=== PATIENT | female | born 1970 ===

== ENCOUNTER 2016-11-06 07:19 | Emergency (ER) | payer MEDICAID ==
[2016-11-06 07:27] VITALS: BMI 27.1
--- NOTE | 2016-11-06 07:58 | C.PDOC ---
History Of Present Illness 46 y/o female presents to the ED with history of migraine headaches x4 days. Pt has experienced similar headaches in the past. Pt states throbbing pain to top of head, radiating forward with associated photophobia, nausea and vomiting. Denies fever, numbness, weakness, visual changes or any other complaints. Time Seen by Provider: 11/06/16 07:43 Chief Complaint (Nursing): Headache History Per: Patient History/Exam Limitations: no limitations Onset/Duration Of Symptoms: Days Current Symptoms Are (Timing): Still Present Severity: Moderate Quality: Other (throbbing) Associated Symptoms: Photophobia, Nausea, Vomiting. denies: Blurred Vision, Extremity Weakness Recent travel outside of the [place]: No Past Medical History Reviewed: Historical Data, Nursing Documentation, Vital Signs Vital Signs: Last Vital Signs Temp 98.1 F 11/06/16 09:50 Pulse 74 11/06/16 09:50 Resp 17 11/06/16 09:50 BP 148/90 11/06/16 09:50 Pulse Ox 99 11/06/16 09:50 - Medical History PMH: Migraine Family History: States: Unknown Family Hx - Social History Hx Tobacco Use: No Hx Alcohol Use: No Hx Substance Use: No - Immunization History Hx Tetanus Toxoid Vaccination: No Hx Influenza Vaccination: No Hx Pneumococcal Vaccination: No Review Of Systems Except As Marked, All Systems Reviewed And Found Negative. Constitutional: Negative for: Fever Eyes: Positive for: Other (photophobia). Negative for: Vision Change Gastrointestinal: Positive for: Nausea, Vomiting Neurological: Positive for: Headache. Negative for: Weakness, Numbness Physical Exam - Physical Exam Appears: Non-toxic, In Acute Distress (uncomfortable) Skin: Warm, Dry, No Rash Head: Atraumatic, Normacephalic Eye(s): bilateral: PERRL, EOMI Ear(s): Bilateral: Normal Oral Mucosa: Moist Throat: No Erythema, No Exudate Neck: Normal ROM, No Midline Cervical Tenderness, No Paracervical Tenderness, Supple Chest: Symmetrical, No Ecchymosis, No Subcutaneous Emphysema Cardiovascular: Rhythm Regular, No Murmur Respiratory: Normal Breath Sounds, No Rales, No Rhonchi, No Wheezing Gastrointestinal/Abdominal: No Tenderness Back: No CVA Tenderness, No Vertebral Tenderness, No Paraspinal Tenderness Extremity: Normal ROM, No Calf Tenderness, No Swelling Extremity: Bilateral: Atraumatic Neurological/Psych: Oriented x3, Normal Speech, Normal Cognition, Normal Cranial Nerves, Normal Motor, Normal Sensation ED Course And Treatment - Laboratory Results Result Diagrams: 11/06/16 08:36 11/06/16 08:36 Urine POC: Negative O2 Sat by Pulse Oximetry: 97 (room air) Pulse Ox Interpretation: Normal Medical Decision Making Medical Decision Making: Old records reviewed, the patient was last seen in the ED on 07/20/16 for headache and similar symptoms, had a normal CT scan and was discharged home with pain medications. Plan: labs, IV fluids, benadyl, reglan, Toradol. No need for CT as there are no neuro deficits. On re-exam, the patient reports improvement of symptoms. Lungs are CTA, heart is RRR, abdomen is soft, non-tender and patient is tolerating PO well. Patient is ambulatory in the ED with steady gait. Follow up with the medical doctor within 1-2 days, Return if worsened. Disposition - Disposition Referrals: Zhang Vernon MD [Staff Provider] - Disposition: HOME/ ROUTINE Disposition Time: 09:50 Condition: FAIR Additional Instructions: Usted necesita hacer un seguimiento con un neurlogo dentro de boubacar semana. Vuelve si empeora. you need to follow up with a neurologist within 1 week. Return if worsened. Prescriptions: Acetaminophen/Butalbital/Caf [Fioricet] 1 tab PO TID PRN #20 tab PRN Reason: Headache Naproxen [Naprosyn] 500 mg PO BID #20 tab Instructions: Migraine Headache (ED) Forms: Work Excuse Print Language: KAZAKH - Clinical Impression Clinical Impression: Migraine - PA / QUALITY CONTROL SPECIALIST / Resident Statement MD/DO has reviewed & agrees with the documentation as recorded. - Scribe Statement The provider has reviewed the documentation as recorded by the Yi Livingston All medical record entries made by the Yi were at my direction and personally dictated by me. I have reviewed the chart and agree that the record accurately reflects my personal performance of the history, physical exam, medical decision making, and the department course for this patient. I have also personally directed, reviewed, and agree with the discharge instructions and disposition.
[2016-11-06] MEDS ORDERED: DiphenhydrAMINE 50 mg/ml Inj IVP STA (08:09)
[2016-11-06] MEDS ORDERED: Sodium Chloride 0.9% 1,000 ML IV ONE (08:36)
[2016-11-06] MEDS ORDERED: Sodium Chloride 0.9% 1,000 ML ONE (08:38)
[2016-11-06] MEDS ORDERED: DiphenhydrAMINE 50 mg/ml Inj ONE (08:38)
[2016-11-06 08:46] LABS: BASO % 0.3 % (0.0-2.0); EOS # 0.1 K/uL (0.0-0.7); EOS % 0.9 % (0.0-4.0); HEMATOCRIT 41.6 % (34.0-47.0); LYMPH # 1.8 K/uL (1.0-4.3); LYMPH % 29.9 % (20.0-40.0); MEAN CELL VOLUME 93.2 fL (81.0-99.0); MEAN CORPUSCULAR HEMOGLOBIN 31.3 pg (27.0-31.0); MEAN CORPUSCULAR HGB CONC 33.6 g/dL (33.0-37.0); MONO # 0.5 K/uL (0.0-0.8); MONO % 8.1 % (0.0-10.0); RED CELL DISTRIBUTION WIDTH 13.5 % (11.5-14.5)
[2016-11-06 08:49] LABS: CHLORIDE 103 mmol/L (98-107)
[2016-11-06 08:50] LABS: POTASSIUM 4.5 mmol/L (3.6-5.2); SODIUM 135 mmol/L (132-148)
[2016-11-06 08:52] LABS: ALB/GLOB RATIO 1.3 (1.0-2.1); ALKALINE PHOSPHATASE 54 U/L (38-126); AST/SGOT 18 U/L (14-36); BILIRUBIN,TOTAL 0.6 mg/dL (0.2-1.3); BLOOD UREA NITROGEN 11 mg/dL (7-17); CARBON DIOXIDE 26 mmol/L (22-30); GFR AFRICAN-AMERICAN > 60; TOTAL PROTEIN 6.9 g/dL (6.3-8.3)
[2016-11-06 08:53] LABS: ALT/SGPT 14 U/L (9-52); CALCIUM 8.2 mg/dl (8.6-10.4); GLUCOSE,RANDOM 120 mg/dL (65-105)
[2016-11-06 09:51] VITALS: BP 148/90; PULSE 74; RESP 17; TEMP 98.1
[2016-11-06 18:08] VITALS: O2SAT 97
== END 2016-11-06 09:58 | disposition home or self-care (01) ==
LOC: C.ER 07:19
DX: G43.909 Migraine, unspecified, not intractable, without status migrainosus (principal)
CPT/HCPCS: 80053; 85025; 94770; 96374; 96375; 99284; J1200; J1885; J2765; J7040

== ENCOUNTER 2017-02-10 11:22 | Observation (INO) | payer MEDICAID | END 2017-02-10 15:40 | disposition home or self-care (01) | LOC: C.ER 11:22 → C.9OBSV 11:45 | PROVIDERS: ADMIT Emergency Medicine | CPT/HCPCS: 74177; 80053; 81001; 83690; 84703; 85025; 96374; G0378; J2270; J2405; Q9967 ==